=== PATIENT | female | born 1985 | race Caucasian/White ===

== ENCOUNTER 2017-03-22 09:42 | Emergency (ER) | payer OTHER ==
[2017-03-22] MEDS ORDERED: GLUCAGON 1 MG/ML VIAL IM STA ×3 (10:05→13:58)
--- NOTE | 2017-03-22 11:04 | XRAY Report ---
EXAM: SOFT TISSUE NECK RADIOGRAPHY EXAM DATE: 03/22/2017 10:43 AM. CLINICAL HISTORY: Pills in throat. COMPARISONS: None. TECHNIQUE: 2 views. FINDINGS: Soft Tissues: No radiopaque foreign body. In the mid esophagus just anterior to C7-T1 is a 2 cm focal area of air within the esophagus. Just below this no air is identified. This may be within normal li mits (peristalsis of gas) versus a non-radiopaque foreign body just inferior to this focal area of ai r. No prevertebral soft tissue swelling. The epiglottis and aryepiglottic folds are unremarkable. No tonsillar or adenoidal enlargement. Regional Skeleton: Unremarkable for age. Other: The visualized lung apices are clear. IMPRESSION: 1. No radiopaque foreign body. 2. Gas visible within the midesophagus may be within normal limits as seen in peristalsis. Given the history, foreign body just inferior to this focal area of air is also a possibility. This was discussed with radiologist Dr. Shields who agrees. [facility] Referring Provider Line: [phone] SITE ID: [id number]
--- NOTE | 2017-03-22 11:04 | XRAY Preliminary Report ---
Exam: XR NECK SOFT TISSUE IMPRESSION: 1. No radiopaque foreign body. 2. Gas visible within the midesophagus may be within normal limits as seen in peristalsis. Given the history, foreign body just inferior to this focal area of air is also a possibility. This was discussed with radiologist Dr. Shields who agrees. [facility] SITE ID: [id number]
--- NOTE | 2017-03-22 12:04 | ED Physician Documentation ---
History of Present Illness - Stated complaint Stated Complaint: PILL STUCK IN THROAT - Chief complaint Chief Complaint: General - Additonal information Additional information: hx from pt 31 f not but breast feeing a 3 m old took advil this am and feels 2-3 pills (enteric coated) are stuck in her throat mid anterior right has had similar sx in the past but usually can vomit back up and feel better Review of Systems Constitutional: denies: Fever Throat: reports: Other (throat pain FB sensation) Cardiac: denies: Chest pain / pressure Respiratory: denies: Dyspnea PD PAST MEDICAL HISTORY - Past Medical History Past Medical History: No - Past Surgical History Past Surgical History: Yes HEENT: Tonsil/Adenoidectomy - Allergies Allergies/Adverse Reactions: Allergies Allergy/AdvReac Type Severity Reaction Status Date / Time hydrocodone Allergy Nausea Verified 03/22/17 09:55 - Social History Does the pt smoke?: No Smoking Status: Never smoker Does the pt drink ETOH?: Yes Does the pt have substance abuse?: No - Immunizations Immunizations are current?: Yes PD ED PE NORMAL - Vitals Vital signs reviewed: Yes - General General: Alert and oriented X 3 - HEENT HEENT: PERRL, Pharynx benign (no visible intra oral swelling or FB) - Neck Neck: Supple, no meningeal sign, Other (firm tender swelling R side of neck) - Cardiac Cardiac: RRR - Respiratory Respiratory: No respiratory distress, Clear bilaterally - Neuro Neuro: Alert and oriented X 3 Results - Vitals Vitals: Vital Signs - 24 hr 03/22/17 03/22/17 03/22/17 09:52 12:12 13:00 Temperature 36.5 C 36.5 C 36.7 C Heart Rate 116 H 75 82 Respiratory 18 16 18 Rate Blood Pressure 118/65 92/51 L 98/57 L O2 Saturation 99 100 100 03/22/17 16:21 Temperature 36.7 C Heart Rate 87 Respiratory 18 Rate Blood Pressure 101/68 O2 Saturation 100 Oxygen O2 Source Room air - Labs Labs: Laboratory Tests 03/22/17 14:58 POC Whole Bld Glucose 93 - Rads (name of study) ST neck Radiology: See rad report (no vis FB, air in esophagus may indicate non vis FB) neck sono Radiology: See rad report (per rad nl thyroid no mass, opacity at site of discomfort felt by tech to be FB and by rds to be a calcification) PD MEDICAL DECISION MAKING - ED course ED course: no relief with glucagon, cannot swallow secretions can breathe considered nitro for esoph relaxation but BP already low end so not safe tried EZ gas + coke as well still no relief tried glucagon again - still no relief todays surgeon in call at [facility] does not do endoscopy for esoph FB so pt will need transfer EMP at [facility] kindly accepts pt in transfer pt stable, no airway compromise, faster and cheaper to transfer POV xray no vis FB, and no ST abn but palpable swelling and TTP R neck so ordered sono - sono showed no mass but per sono tech possible FB at site of discomfort - radiology read states likely a calcification Departure - Departure Disposition: 02 Transfer Acute Care Hosp Clinical Impression: Esophagus, foreign body Qualifiers: Encounter type: initial encounter Qualified Code(s): T18.108A - Unspecified foreign body in esophagus causing other injury, initial encounter Discharge Date/Time: 03/22/17 16:40
[2017-03-22] MEDS ORDERED: WATER FOR INJECTION,STERILE 10 ML ONE (12:18)
[2017-03-22] MEDS ORDERED: SODIUM CHLORIDE 0.9% 2,000 ML IV ONE (14:21)
[2017-03-22 16:22] VITALS: BP 101/68
--- NOTE | 2017-03-22 16:50 | Ultrasound Report ---
EXAM: NECK ULTRASOUND EXAM DATE: 03/22/2017 04:24 PM. CLINICAL HISTORY: R neck swelling unable to swallow. Pt swallowed pills this morning, feels that they are lodged in her throat. COMPARISON: None. TECHNIQUE: Real-time sonographic imaging was performed by the optometrist/practice owner utilizing color-flow. Multi ple payroll representative static images were saved for review. FINDINGS: The patient localized the area of pain and the technologist scanning the area of the patien t's concern. Single provided view of the thyroid is unremarkable. Subsequent images performed by the technologist point at echogenic foci in the neck, most likely calc ifications in thyroid cartilage on initial images and fatty tori of a morphologically normal lymph no de in the last image provided. Please note that neck ultrasound is not the examination of choice to evaluate the pharynx or esophagu s. IMPRESSION: No soft tissue abnormality seen on ultrasound in the area of concern as indicated by the patient. Ple ase note that neck ultrasound does not evaluate the pharynx or esophagus. [facility] Referring Provider Line: [phone] SITE ID: [id number]
== END 2017-03-22 16:40 | disposition short-term general hospital (02) ==
LOC: ED 09:42
DX: T18.198A Other foreign object in esophagus causing other injury, initial encounter (principal); X58.XXXA Exposure to other specified factors, initial encounter
CPT/HCPCS: 70360; 76536; 96360; 96361; 96372; 99283; 99284